=== PATIENT | male | born 1945 | race Hispanic/Latino ===

== ENCOUNTER 2022-07-16 13:57 | Inpatient (IN) | payer MEDICARE, OTHER ==
[~2022-07-16] VITALS: Ht 172.7 cm; Wt 83.0 kg
[2022-07-16] MEDS ORDERED: ONDANSETRON HCL INJ 2MG/ML 2ML 2 MG/ML VIAL IV STA (14:30)
[2022-07-16] MEDS ORDERED: SODIUM CHLORIDE 0.9% 1000ML 1,000 ML IV STA (14:30)
[2022-07-16] MEDS ORDERED: DONNATAL/LIDOCAINE/MAALOX 30 ML SUSP PO ONE (14:30)
[2022-07-16 15:04] LABS: BASOPHILS % 0.2 % (0.0-1.0); HEMATOCRIT 48.4 % (38.2-49.6); HEMOGLOBIN 16.7 g/dL (14.0-18.0); LYMPHOCYTES % 7.3 % (18.0-39.1); MEAN CORPUSCULAR HEMOGLOBIN 31.9 pg (28-32); MEAN CORPUSCULAR HGB CONC 34.5 g/dL (31-35); MEAN CORPUSCULAR VOLUME 92.5 fL (81-99); MONOCYTES # (AUTO) 0.4 (0.2-0.8); MONOCYTES % 3.1 % (4.4-11.3); NEUTROPHILS # (AUTO) 12.1 (2.1-6.9); PLATELET COUNT 224 x10e3/uL (140-360); RED BLOOD COUNT 5.23 x10e6/uL (4.3-5.7); RED CELL DISTRIBUTION WIDTH 12.5 % (11.7-14.4)
[2022-07-16 15:22] LABS: INR 0.95; PARTIAL THROMBOPLASTIN TIME 30.9 seconds (23.8-35.5); PROTHROMBIN TIME 13.5 seconds (11.9-14.5)
[2022-07-16 15:31] LABS: ALANINE AMINOTRANSFERASE 17 IU/L (0-55); ALBUMIN 4.4 g/dL (3.5-5.0); ALBUMIN/GLOBULIN RATIO 1.1 (0.8-2.0); ALKALINE PHOSPHATASE 66 IU/L (40-150); ANION GAP 17.9 mmol/L (8-16); BLOOD UREA NITROGEN 13 mg/dL (7-26); BUN/CREATININE RATIO 12 (6-25); CALCIUM 9.8 mg/dL (8.4-10.2); CARBON DIOXIDE 24 mmol/L (22-29); CHLORIDE 100 mmol/L (98-107); CREATINE KINASE 43 IU/L (30-200); CREATININE, SERUM 1.06 mg/dL (0.72-1.25); GLUCOSE 131 mg/dL (74-118); LIPASE 24 U/L (8-78); POTASSIUM 3.9 mmol/L (3.5-5.1); SODIUM 138 mmol/L (136-145)
[2022-07-16 15:52] LABS: CLARITY,URINE SL CLOUDY (CLEAR); COLOR,URINE YELLOW (YELLOW); KETONES,URINE TRACE (NEGATIVE); LEUKOCYTE ESTERASE ,URINE NEGATIVE (NEGATIVE); NITRITE,URINE NEGATIVE (NEGATIVE); PROTEIN,URINE DIPSTICK 1+ (NEGATIVE); URINE UROBILINOGEN 0.2 mg/dL (0.2 - 1)
[2022-07-16] MEDS ORDERED: IOPAMIDOL 370 MG/ML 100 ML INFUS..BTL INJ ONE (15:53)
[2022-07-16 16:02] LABS: AMORPHOUS SEDIMENT,URINE MODERATE (FEW); BACTERIA,URINE MODERATE /HPF; EPITHELIAL CELLS,URINE FEW /LPF; MUCUS,URINE MANY (RARE); WBC,URINE (MAN) 0-5 /HPF (0-5)
[2022-07-16] MEDS ORDERED: METOCLOPRAMIDE HCL 10 MG/2ML VIAL IV ONE (16:30)
[2022-07-16] MEDS ORDERED: Morphine 4mg INJECTION 4 MG/ML INJ IV ONE (17:00)
[2022-07-16] MEDS ORDERED: SODIUM CHLORIDE 0.9% 1000ML 1,000 ML ONE (17:15)
[2022-07-16] MEDS: SODIUM CHLORIDE 0.9% 1000ML 1,000 ML IV SCH (17:23)
[2022-07-16] MEDS ORDERED: ACETAMINOPHEN 325 MG TAB PO ONE (19:15)
[2022-07-16] MEDS ORDERED: LEVOTHYROXINE50 MCG PO (22:29)
[2022-07-16] MEDS ORDERED: CLOTRIMAZOLE-BE15 GM TOP (22:29)
[2022-07-16] MEDS ORDERED: ATORVASTATIN CA10 MG PO (22:29)
[2022-07-16] MEDS ORDERED: OMEPRAZOLE40 MG PO (22:29)
[2022-07-16] MEDS ORDERED: LOSARTAN POTAS100 MG PO (22:29)
[2022-07-16] MEDS ORDERED: FLOMAX0.4 MG PO (22:29)
[2022-07-16 22:32] VITALS: BP 157/84
[2022-07-16] MEDS: Morphine 4mg INJECTION 4 MG/ML INJ IV PRN (22:58)
[2022-07-16] MEDS: ONDANSETRON HCL INJ 2MG/ML 2ML 2 MG/ML VIAL IV PRN (22:58)
[2022-07-16 23:14] VITALS: BP 157/84
[2022-07-17] MEDS: SODIUM CHLORIDE 0.9% 1000ML 1,000 ML IV SCH ×4 (01:00→21:12)
[2022-07-17 05:39] LABS: BASOPHILS % 0.1 % (0.0-1.0); EOSINOPHILS % 0.1 % (0.0-6.0); HEMOGLOBIN 15.4 g/dL (14.0-18.0); LYMPHOCYTES # (AUTO) 1.6 (1.0-3.2); LYMPHOCYTES % 10.7 % (18.0-39.1); MEAN CORPUSCULAR HEMOGLOBIN 31.9 pg (28-32); MEAN CORPUSCULAR HGB CONC 34.2 g/dL (31-35); MEAN CORPUSCULAR VOLUME 93.2 fL (81-99); MONOCYTES # (AUTO) 1.3 (0.2-0.8); MONOCYTES % 8.7 % (4.4-11.3); PLATELET COUNT 206 x10e3/uL (140-360); RED BLOOD COUNT 4.83 x10e6/uL (4.3-5.7); RED CELL DISTRIBUTION WIDTH 12.7 % (11.7-14.4)
[2022-07-17 05:59] LABS: CALCIUM 8.7 mg/dL (8.4-10.2); CHOL/HDL RATIO 3.7 (3.9-4.7); CREATININE, SERUM 1.05 mg/dL (0.72-1.25)
[2022-07-17 06:22] LABS: CREATINE KINASE MB 1.2 ng/mL (0-5.0)
[2022-07-17] MEDS: ONDANSETRON HCL INJ 2MG/ML 2ML 2 MG/ML VIAL IV PRN (06:39)
[2022-07-17] MEDS: Morphine 4mg INJECTION 4 MG/ML INJ IV PRN ×2 (06:39→21:04)
[2022-07-17 07:45] VITALS: BP 142/69
[2022-07-17 09:00] VITALS: BP 142/69
[2022-07-17] MEDS ORDERED: ONDANSETRON HCL INJ 2MG/ML 2ML 2 MG/ML VIAL IV PRN (09:30)
[2022-07-17] MEDS ORDERED: HYDRALAZINE HCL 20 MG/ML VIAL IV PRN (09:30)
[2022-07-17 11:26] VITALS: BP 136/68
[2022-07-17] MEDS ORDERED: POVIDONE IODINE 0.05% 0.05 % ML PO ONE (12:02)
[2022-07-17] MEDS ORDERED: SEVOFLURANE INHAL SOLN 250 ML PEN BTL ONE (12:02)
[2022-07-17] MEDS ORDERED: KETOROLAC TROMETHAMINE 30 MG/ML VIAL ONE (12:02)
[2022-07-17] MEDS ORDERED: ONDANSETRON HCL INJ 2MG/ML 2ML 2 MG/ML VIAL ONE (12:02)
[2022-07-17] MEDS ORDERED: PROPOFOL IV EMULSION 10 MG/ML 20 ML VIAL ONE (12:02)
[2022-07-17] MEDS ORDERED: DEXAMETHASONE SOD PHOS INJ 4 MG/ML SDV ONE (12:02)
[2022-07-17 16:47] VITALS: BP 137/86
[2022-07-17 20:00] VITALS: BP 147/86
[2022-07-18] VITALS (7 sets, daily range): BP systolic 140–164; BP diastolic 70–83
[2022-07-18 08:26] LABS: CREATINE KINASE MB 0.9 ng/mL (0-5.0)
[2022-07-18] MEDS: SODIUM CHLORIDE 0.9% 1000ML 1,000 ML IV SCH ×2 (09:15→17:57)
[2022-07-18] MEDS ORDERED: REGADENOSON 0.4 MG/5 ML SYR IV ONE (11:13)
[2022-07-18] MEDS: Morphine 4mg INJECTION 4 MG/ML INJ IV PRN (18:01)
[2022-07-19] VITALS (10 sets, daily range): BP systolic 109–153; BP diastolic 58–105
[2022-07-19] MEDS: SODIUM CHLORIDE 0.9% 1000ML 1,000 ML IV SCH ×4 (02:28→22:41)
[2022-07-19] MEDS ORDERED: BUPIVACAINE 0.25% 30ML SDV ONE (08:30)
[2022-07-19] MEDS ORDERED: SUGAMMADEX SODIUM 200 MG/2 ML VIAL IV ONE (09:40)
[2022-07-19] MEDS ORDERED: FENTANYL CITRATE/PF 100MCG/2 ML INJ ONE (13:41)
[2022-07-19] MEDS ORDERED: MIDAZOLAM HCL 2 MG/2 ML VIAL ONE (13:41)
[2022-07-20 04:56] LABS: BASOPHILS % 0.1 % (0.0-1.0); HEMATOCRIT 40.2 % (38.2-49.6); HEMOGLOBIN 13.9 g/dL (14.0-18.0); LYMPHOCYTES % 7.7 % (18.0-39.1); MEAN CORPUSCULAR HEMOGLOBIN 31.9 pg (28-32); MEAN CORPUSCULAR HGB CONC 34.6 g/dL (31-35); MEAN CORPUSCULAR VOLUME 92.2 fL (81-99); MONOCYTES # (AUTO) 0.6 (0.2-0.8); MONOCYTES % 4.8 % (4.4-11.3); NEUTROPHILS # (AUTO) 10.8 (2.1-6.9); PLATELET COUNT 198 x10e3/uL (140-360); RED BLOOD COUNT 4.36 x10e6/uL (4.3-5.7); RED CELL DISTRIBUTION WIDTH 12.5 % (11.7-14.4)
[2022-07-20 05:18] LABS: ALBUMIN 2.7 g/dL (3.5-5.0); ALBUMIN/GLOBULIN RATIO 0.9 (0.8-2.0); ANION GAP 14.7 mmol/L (8-16); CREATININE, SERUM 1.13 mg/dL (0.72-1.25); POTASSIUM 3.7 mmol/L (3.5-5.1)
[2022-07-20 05:55] VITALS: BP 149/79
[2022-07-20] MEDS ORDERED: PANTOPRAZOLE SOD 40 MG TABEC PO SCH (07:30)
[2022-07-20] MEDS ORDERED: LEVOTHYROXINE SODIUM 50 MCG TAB PO SCH (07:30)
[2022-07-20 07:52] VITALS: BP 132/73
[2022-07-20 07:57] VITALS: BP 132/73
[2022-07-20] MEDS ORDERED: METOPROLOL SUCCINATE 25 MG TAB XL PO SCH (09:00)
[2022-07-20] MEDS ORDERED: BETAMETHASONE/CLOTRIMAZOLE CR 15 GM TUBE TOP SCH (09:00)
[2022-07-20] MEDS ORDERED: LOSARTAN POTASSIUM 100 MG TAB PO SCH (09:00)
[2022-07-20] MEDS ORDERED: TAMSULOSIN HCL 0.4 MG CAP PO SCH (09:00)
[2022-07-20] MEDS ORDERED: ONDANSETRON HCL 4 MG ORAL DISINTEGRATING TAB PO PRN (09:45)
[2022-07-20] MEDS: SODIUM CHLORIDE 0.9% 1000ML 1,000 ML IV SCH (10:42)
[2022-07-20 11:27] VITALS: BP 133/72
[2022-07-20] MEDS ORDERED: BACTRIM DS TAB1 EACH PO (15:22)
[2022-07-20] MEDS ORDERED: TYLENOL WITH CODIENE PO (15:24)
[2022-07-20] MEDS ORDERED: ATORVASTATIN 10 MG TAB PO SCH (21:00)
== END 2022-07-20 15:47 | disposition home or self-care (01) | DRG 419 ==
LOC: ER 14:20 → ERHOLD 16:57 → MED/SURG 22:02 → MED/SURG2 22:07
PROVIDERS: ADMIT Internal Medicine; ATTEND Internal Medicine
PROC: 0FT44ZZ Resection of Gallbladder, Percutaneous Endoscopic Approach (ICD-10-PCS; principal; 2022-07-19 09:28)
DX: K80.00 Calculus of gallbladder with acute cholecystitis without obstruction (principal); K82.8 Other specified diseases of gallbladder; E78.5 Hyperlipidemia, unspecified; I10 Essential (primary) hypertension; R77.8 Other specified abnormalities of plasma proteins; E03.9 Hypothyroidism, unspecified; N40.0 Benign prostatic hyperplasia without lower urinary tract symptoms; Z20.822 Contact with and (suspected) exposure to COVID-19; R13.10 Dysphagia, unspecified
CPT/HCPCS: 0223U; 36415; 71045; 74177; 76705; 78452; 80048; 80053; 80061; 81001; 82550; 82553; 83690; 84484; 85025; 85610; 85730; 88304; 93005; 93017; 93306; 96361; 99251; 99284; A9502; J0694; J1100; J1885; J2250; J2270; J2405; J2543; J2765; J3010; J7030; Q9967